=== PATIENT | female | born 1970 | race Caucasian/White ===

== ENCOUNTER → 2022-11-16 14:46 | Outpatient (CLI) | payer BC, SELFPAY ==
--- NOTE | 2022-11-16 14:54 | XR_ITS ---
FINAL REPORT CLINICAL HISTORY: Right foot pain on bottom COMPARISON: None FINDINGS: RIGHT FOOT: Three views of the right foot were obtained. There is no acute fracture or dislocation. There is mild degenerative change. Calcaneal spurs are noted. There is no soft tissue abnormality. IMPRESSION: Mild degenerative change without acute bony abnormality. Reviewed, Interpreted and Dictated by Dajuan Contreras III, MD Transcribed by Hannah Peralta Authenticated and [facility]
--- NOTE | 2022-11-16 14:54 | XR_ITS ---
FINAL REPORT CLINICAL HISTORY: Left foot pain on the bottom, hard knot on left heel for 6 months COMPARISON: None FINDINGS: LEFT FOOT: Three views of the left foot were obtained. There is no acute fracture or dislocation. There is mild degenerative change. Calcaneal spurs are noted. There is no soft tissue abnormality. IMPRESSION: Mild degenerative change without acute bony abnormality. Reviewed, Interpreted and Dictated by Dajuan Contreras III, MD Transcribed by Hannah Peralta Authenticated and [facility]
== END ==
PROVIDERS: PCP Nurse Practitioner Family; Visit Provider Nurse Practitioner Family
DX: M79.672 Pain in left foot (principal); M79.671 Pain in right foot
CPT/HCPCS: 73630